=== PATIENT | male | born 2000 | race African-American/Black ===

== ENCOUNTER 2025-05-05 02:40 | Emergency (ER) | payer OTHER ==
[~2025-05-05] VITALS: Ht 177.8 cm; Wt 65.0 kg
[2025-05-05 02:44] VITALS: BP 134/69; PULSE 71; RESP 14; TEMP 36.9; O2SAT 100
[2025-05-05] MEDS: SODIUM CHLORIDE 0.9% 1,000 ML IV ONE (03:00)
[2025-05-05 03:25] LABS: BASOPHILS % 0.4 % (0.0-2.0); EOSINOPHILS % 1.4 % (0.0-5.0); HEMATOCRIT. 41.0 % (42.0-52.0); HEMOGLOBIN. 13.6 g/dL (14.0-18.0); LYMPHOCYTES % 26.6 % (20.0-50.0); MEAN PLATELET VOLUME 8.5 fl (7.4-10.4); MONOCYTES % 6.8 % (2.0-8.0); NEUTROPHILS % 64.8 % (40.0-76.0); PLATELET 183 x1000/uL (130-400); RED BLOOD CELL COUNT 4.68 mill/uL (4.7-6.1); RED CELL DISTRIBUTION WIDTH 13.0 % (11.6-14.6)
[2025-05-05 03:47] LABS: CREATININE 1.4 mg/dL (0.6-1.3); UREA NITROGEN BLOOD 12 mg/dL (9-23)
[2025-05-05 03:48] LABS: ETHANOL BLOOD < 10 mg/dL (<10)
[2025-05-05 03:49] LABS: ASPARTATE AMINOTRANSFERASE 26 IU/L (<34); BILIRUBIN DIRECT 0.4 mg/dL (<=3.0); BILIRUBIN TOTAL 1.1 mg/dL (0.1-1.0); PROTEIN TOTAL 7.4 g/dL (6.0-8.3)
== END 2025-05-05 05:45 | disposition home or self-care (01) ==
LOC: ER 02:40
DX: S09.90XA Unspecified injury of head, initial encounter (principal); R55 Syncope and collapse; X58.XXXA Exposure to other specified factors, initial encounter; Y93.89 Activity, other specified; Y92.89 Other specified places as the place of occurrence of the external cause; Y99.8 Other external cause status
CPT/HCPCS: 36415; 80048; 80076; 80320; 82550; 85025; 93005; 99284; G0480

== ENCOUNTER 2025-05-07 10:44 | Emergency (ER) | payer OTHER ==
[~2025-05-07] VITALS: Ht 185.4 cm; Wt 77.0 kg
[2025-05-07 10:48] VITALS: O2SAT 100
[2025-05-07 12:15] VITALS: BP 118/71; PULSE 61; RESP 16; TEMP 36.6; O2SAT 100
== END 2025-05-07 12:17 | disposition home or self-care (01) ==
LOC: ER 10:44
DX: R06.02 Shortness of breath (principal); F17.200 Nicotine dependence, unspecified, uncomplicated
CPT/HCPCS: 71045; 93005; 99283